=== PATIENT | male | born 1955 | race Caucasian/White ===

== ENCOUNTER 2017-05-22 20:48 | Observation (INO) | payer OTHER ==
[~2017-05-22] VITALS: Ht 177.8 cm; Wt 95.8 kg
[~2017-05-22 20:48] MED LIST: PENI500T; PRAV20TA67
[2017-05-22 20:51] VITALS: BP 146/80; PULSE 77; RESP 16; TEMP 98.3; O2SAT 96
--- NOTE | 2017-05-22 21:10 | PD ---
Physical Exam Date Seen by Provider: May 22, 2017 Time Seen by Provider: 21:07 Narrative 61 yo male here for evaluation of SOB and chest pain. Per patient is chest pressure. Going on for an hour. Nothing makes it better or worst. No trauma. He had something similar 10 years ago but no obvious diagnosis. He changed his lifestyle and improved on it own. Pain is 4/10. Diaphoretic. Vitals are stable in triage. Awaiting bed placement. Data Data Last Documented VS Vital Signs Date Time Temp Pulse Resp B/P Pulse Ox O2 Delivery O2 Flow Rate FiO2 05/22/17 20:51 98.3 77 16 146/80 96 Room Air [facility] Medical Record Reviewed: Yes Supervised Visit with CHELSEY: No Miguel Keller May 22, 2017 21:10
[2017-05-22 21:25] VITALS: BP 137/79; PULSE 76; RESP 18; O2SAT 98
[2017-05-22] MEDS ORDERED: SIMVPOW (21:32)
[2017-05-22] MEDS ORDERED: AMLO10TA2 PO (21:32)
--- NOTE | 2017-05-22 21:39 | PD ---
HPI Chief Complaint: Chest Pain Time Seen by Provider: 21:33 Travel History International Travel<30 days: No Contact w/Intl Traveler<30days: No Traveled to known affect area: No History of Present Illness HPI 61-year-old male presents to the emergency department by private transportation the care of his spouse for evaluation of 20 minutes of chest pressure shortness of breath sweats and generalized weakness. Patient denies any sudden onset thunderclap headache. Patient has no headache at this time. Patient does have history of sinusitis and has noticed over the past few days feeling some mild pressure. Patient denies any visual disturbance. No focal no double vision or blurred vision no loss of vision. Patient had no change in his speech or facial droop. Patient states chest pressure is unusual for him does have history of hypertension and dyslipidemia and last stress test was approximately 8 years ago. Patient does smoke cigars. Patient is not diabetic. Patient has family history premature onset heart disease and diabetes. Patient states that he has been drinking alcohol this evening. Symptoms occurred approximately 7 PM with present while he was talking on the phone. Patient reportedly asked his to assist into the bedroom to help translate down where he rested and symptoms resolved spontaneously. Patient hasn't had no upper extremity lower extremity numbness tingling or weakness or ataxia of gait. [facility] Past Medical History Narrative Medical Hypertension dyslipidemia tobaccoism: Family history CAD diabetes; nursing notes reviewed High Cholesterol: Yes Diminished Hearing: No Hypertension: Yes Tetanus Vaccination: < 5 Years Influenza Vaccination: No Past Surgical History Surgical History: No Previous Surgery Social History Alcohol Use: Yes (FEW DRINKS PER DAY) Tobacco Use: Yes (OCCASIONAL CIGAR) Substance Use: No Allergies-Medications (Allergen,Severity, Reaction): Coded Allergies: No Known Allergies (Verified Allergy, Mild, 07/29/07) Reported Meds & Prescriptions Reported Meds & Active Scripts Active Reported Amlodipine (Amlodipine Besylate) 10 Mg Tab 10 Mg PO DAILY Simvastatin (Simvastain (Bulk)) 1 Pow Pow 20 Mg DAILY Review of Systems Except as stated in HPI: all other systems reviewed are Neg General / Constitutional: No: Fever, Chills Eyes: No: Diploplia, Blurred Vision, Photophobia, Visual changes HENT: Positive: Headaches, No: Neck Stiffness (mild), Neck Pain Cardiovascular: Positive: Chest Pain or Discomfort (5/10 resolved at this time) , Diaphoresis Respiratory: Positive: Shortness of Breath (resolved) Gastrointestinal: No: Nausea, Vomiting, Diarrhea, Abdominal Pain Genitourinary: No: Urgency, Frequency Musculoskeletal: No: Myalgias, Arthralgias, Edema, Pain Skin: No Rash Neurologic: Positive: Weakness, Headache, No: Dizziness, Syncope, Focal Abnormalities, Coordination Problem, Ataxia, Change in Mentation (mild), Slurred Speech, Paresthesia, Seizures Psychiatric: No: Anxiety Endocrine: No: Heat Intolerance Hematologic/Lymphatic: No: Easy Bruising Physical Exam Narrative GENERAL: Well-developed well-nourished female in no acute distress no respiratory distress GCS 15 SKIN: Warm and dry. HEAD: Atraumatic. Normocephalic. EYES: Pupils equal and round. No scleral icterus. No injection or drainage. ENT: No nasal bleeding or discharge. Mucous membranes pink and moist. NECK: Trachea midline. No JVD. CARDIOVASCULAR: Regular rate and rhythm. RESPIRATORY: No accessory muscle use. Clear to auscultation. Breath sounds equal bilaterally. GASTROINTESTINAL: Abdomen soft, non-tender, nondistended. Hepatic and splenic margins not palpable. MUSCULOSKELETAL: Extremities without clubbing, cyanosis, or edema. No obvious deformities. Bilateral radial and dorsalis pedis pulses 2+ to palpation. NEUROLOGICAL: Awake and alert. No obvious cranial nerve deficits. No facial droop, no visual field deficit. Motor grossly within normal limits. Five out of 5 muscle strength in the arms and legs. No limb ataxia. No pronator drift. DTRs 2+ and symmetric. Sensory exam intact. Normal speech. PSYCHIATRIC: Appropriate mood and affect; insight and judgment normal. Data Data Last Documented VS Vital Signs Date Time Temp Pulse Resp B/P Pulse Ox O2 Delivery O2 Flow Rate FiO2 05/22/17 22:23 84 18 130/77 96 Room Air 05/22/17 20:51 98.3 Orders Electrocardiogram (05/22/17 21:03) Electrocardiogram (05/22/17 21:33) Basic Metabolic Panel (Bmp) (05/22/17 21:33) Ckmb (Isoenzyme) Profile (05/22/17 21:33) Complete Blood Count With Diff (05/22/17 21:33) Magnesium (Mg) (05/22/17 21:33) Prothrombin Time / Inr (Pt) (05/22/17 21:33) Act Partial Throm Time (Ptt) (05/22/17 21:33) Troponin I (05/22/17 21:33) Chest, Single Ap (05/22/17 21:33) Ecg Monitoring (05/22/17 21:33) Bilateral Bp Monitoring (05/22/17 21:33) Iv Access Insert/Monitor (05/22/17 21:33) Oximetry (05/22/17 21:33) Oxygen Administration (05/22/17 21:33) Aspirin Chew (Aspirin Chew) (05/22/17 21:45) Sodium Chloride 0.9% Flush (Ns Flush) (05/22/17 21:45) Ct Brain W/O Iv Contrast(Rout) (05/22/17 ) Alcohol (Ethanol) (05/22/17 21:33) Admit Order (Ed Use Only) (05/22/17 ) ^ Saline Lock (05/22/17 22:46) Resp Oxygen Huan C Titrat 1-4 L (05/22/17 ) Notify Dr: Other (05/22/17 22:46) Sodium Chloride 0.9% Flush (Ns Flush) (05/23/17 09:00) Sodium Chloride 0.9% Flush (Ns Flush) (05/22/17 23:00) Activity Bed Rest With Brp (05/22/17 22:46) Vital Signs (Adult) Q4H (05/22/17 22:46) Cardiac Rhythm .As Directed (05/22/17 22:46) Notify Dr: Other .PRN (05/22/17 22:46) Notify Parameters (05/22/17 22:46) Resp Oxygen Nasal Cannula (05/22/17 ) Ckmb (Isoenzyme) Profile (05/23/17 00:40) Ckmb (Isoenzyme) Profile (05/23/17 03:40) Troponin I (05/23/17 00:40) Troponin I (05/23/17 03:40) Electrocardiogram (05/23/17 00:40) Electrocardiogram (05/23/17 03:40) ^ Obtain (05/22/17 22:46) Sodium Chloride 0.9% Flush (Ns Flush) (05/22/17 23:00) Sodium Chloride 0.9% Flush (Ns Flush) (05/23/17 09:00) Acetaminophen (Tylenol) (05/22/17 23:00) Acetamin-Hydrocod 325-7.5 Mg (Chamberino 7.5 (05/22/17 23:00) Morphine Inj (Morphine Inj) (05/22/17 23:00) Ondansetron Inj (Zofran Inj) (05/22/17 23:00) Pantoprazole (Protonix) (05/23/17 09:00) Nitroglycerin Sl (Nitrostat Sl) (05/22/17 23:00) Aspirin (Aspirin) (05/23/17 09:00) Alprazolam (Xanax) (05/22/17 23:00) Newspaper Vendor / Telemetry NEIL.Q8H (05/22/17 22:46) D-Dimer (05/22/17 22:50) Labs Laboratory Tests Test 05/22/17 21:40 White Blood Count 7.1 TH/MM3 Red Blood Count 5.04 MIL/MM3 Hemoglobin 15.6 GM/DL Hematocrit 45.2 % Mean Corpuscular Volume 89.7 FL Mean Corpuscular Hemoglobin 31.0 PG Mean Corpuscular Hemoglobin 34.6 % Concent Red Cell Distribution Width 13.4 % Platelet Count 223 TH/MM3 Mean Platelet Volume 7.9 FL Neutrophils (%) (Auto) 58.7 % Lymphocytes (%) (Auto) 30.8 % Monocytes (%) (Auto) 6.5 % Eosinophils (%) (Auto) 3.2 % Basophils (%) (Auto) 0.8 % Neutrophils # (Auto) 4.1 TH/MM3 Lymphocytes # (Auto) 2.2 TH/MM3 Monocytes # (Auto) 0.5 TH/MM3 Eosinophils # (Auto) 0.2 TH/MM3 Basophils # (Auto) 0.1 TH/MM3 CBC Comment DIFF FINAL Differential Comment Prothrombin Time 10.1 SEC Prothromb Time International 0.9 RATIO Ratio Activated Partial 24.0 SEC Thromboplast Time Sodium Level 139 MEQ/L Potassium Level 3.7 MEQ/L Chloride Level 107 MEQ/L Carbon Dioxide Level 23.1 MEQ/L Anion Gap 9 MEQ/L Blood Urea Nitrogen 11 MG/DL Creatinine 0.83 MG/DL Estimat Glomerular Filtration 94 ML/MIN Rate Random Glucose 104 MG/DL Calcium Level 8.5 MG/DL Magnesium Level 2.4 MG/DL Total Creatine Kinase 47 U/L Troponin I LESS THAN 0.02 NG/ML Ethyl Alcohol Level 176 MG/DL D-Dimer Quantitative (PE/DVT) 0.42 MG/L [facility] Medical Decision Making Medical Screen Exam Complete: Yes Emergency Medical Condition: Yes Medical Record Reviewed: Yes Interpretation(s) EKG normal sinus rhythm no ST elevation or injury pattern or ectopy noted Troponin I less than 0.02, not elevated; CK total 47, not elevated CBC is automated differential values in normal range Basic metabolic panel values in normal range Coagulation studies are normal range Serum alcohol 176 elevated d-dimer: 0.42, not elevated Last Impressions Head CT 05/22/17 0000 Signed Impressions: Service Date/Time: Monday, May 22, 2017 21:41 - CONCLUSION: 1. No acute intracranial abnormalities. Mark Veloz MD Vital Signs Date Time Temp Pulse Resp B/P Pulse Ox O2 Delivery O2 Flow Rate FiO2 05/22/17 21:25 76 18 137/79 98 Room Air 05/22/17 20:51 98.3 77 16 146/80 96 Room Air Chest x-ray: No acute process per reading radiologist Dr. Veloz CBC & BMP Diagram 05/22/17 21:40 Differential Diagnosis Chest pain, ACS, CT, arrhythmia, TIA; also to consider PE Narrative Course Well-developed well-nourished male [id number] with hypertension dyslipidemia and tobaccoism family history of cardiac disease presented with episode of 20 minutes of retrosternal chest pressure that resolved spontaneously but was associated with diaphoresis and mild shortness of breath. Patient administered aspirin 162 mg by mouth as well as EKG ordered along with CT brain noncontrast and serum alcohol level; EKG is sinus rhythm no acute ST elevation or injury pattern or ectopy noted EKG normal sinus rhythm no acute ST elevation injury pattern or ectopy Patient administered aspirin times one dose CT brain noncontrast reveals no acute abnormality chest x-ray is no acute abnormality At 10:42 PM patient is clinically stable and asymptomatic; CT brain chest x-ray EKG lab values all within normal range with no acute abnormalities however serum alcohol is noted to be elevated 176; in view of patient's risk factor profile male, age 61, history of hypertension, history of dyslipidemia, history of tobaccoism, and family history premature onset heart disease will admit patient to chest pain center per protocol. Physician Communication Physician Communication Chest pain center per protocol observation Diagnosis Primary Impression: Chest pain Additional Impression: Alcohol ingestion Admitting Information Admitting Physician Requests: Observation Margarette Vazquez MD May 22, 2017 21:39
[2017-05-22] MEDS ORDERED: ASPIRIN 81 MG CHEW TAB PO ONE (21:45)
[2017-05-22] MEDS ORDERED: SODIUM CHLORIDE 0.9% FLUSH 10 ML FLUSH IVF PRN ×2 (21:45→23:00)
[2017-05-22 22:00] LABS: AUTOMATED NEUTROPHIL # 4.1 TH/MM3 (1.8-7.7); BASOPHIL # 0.1 TH/MM3 (0-0.2); BASOPHIL % 0.8 % (0.0-2.0); EOSINOPHIL # 0.2 TH/MM3 (0-0.4); EOSINOPHIL % 3.2 % (0.0-4.0); HEMATOCRIT 45.2 % (39.0-51.0); HEMO FLAGS DIFF FINAL; LYMPH % 30.8 % (9.0-44.0); LYMPHOCYTE # 2.2 TH/MM3 (1.0-4.8); MEAN CELL VOLUME 89.7 FL (80.0-100.0); MEAN CORPUSCULAR HGB CONC 34.6 % (32.0-36.0); MONO % 6.5 % (0.0-8.0); NEUT % 58.7 % (16.0-70.0); PLATELET COUNT 223 TH/MM3 (150-450); RED BLOOD COUNT 5.04 MIL/MM3 (4.50-5.90); RED CELL DISTRIBUTION WIDTH 13.4 % (11.6-17.2); WHITE BLOOD COUNT 7.1 TH/MM3 (4.0-11.0)
--- NOTE | 2017-05-22 22:09 | RADRPT ---
EXAM DATE/TIME: 05/22/2017 21:41 [facility] COMPARISON: No previous studies available for comparison. INDICATIONS : Dizziness. RADIATION DOSE: 56.35 CTDIvol (mGy) MEDICAL HISTORY : Hypertension. SURGICAL HISTORY : None. ENCOUNTER: Initial ACUITY: 1 day PAIN SCALE: 0/10 LOCATION: cranial TECHNIQUE: Multiple contiguous axial images were obtained of the head. Using automated exposure control and adj ustment of the mA and/or kV according to patient size, radiation dose was kept as low as reasonably a chievable to obtain optimal diagnostic quality images. DICOM format image data is available electro nically for review and comparison. FINDINGS: CEREBRUM: The ventricles are normal for age. No evidence of midline shift, mass lesion, hemorrhage or acute in farction. No extra-axial fluid collections are seen. POSTERIOR FOSSA: The cerebellum and brainstem are intact. The 4th ventricle is midline. The cerebellopontine angle i s unremarkable. EXTRACRANIAL: The visualized portion of the orbits is intact. SKULL: The calvaria is intact. No evidence of skull fracture. CONCLUSION: 1. No acute intracranial abnormalities. Mark Veloz MD on May 22, 2017 at 22:06 Board Certified Radiologist. This report was verified electronically.
--- NOTE | 2017-05-22 22:14 | RADRPT ---
EXAM DATE/TIME: 05/22/2017 21:49 [facility] COMPARISON: No previous studies available for comparison. INDICATIONS : Chest pain and pressure. MEDICAL HISTORY : Hypertension. High cholesterol. SURGICAL HISTORY : None. ENCOUNTER: Initial ACUITY: 1 day PAIN SCORE: 5/10 LOCATION: Bilateral chest FINDINGS: A single view of the chest demonstrates the lungs to be symmetrically aerated without evidence of mas s, infiltrate or effusion. The cardiomediastinal contours are unremarkable. Osseous structures are intact. CONCLUSION: No acute disease. Mark Veloz MD on May 22, 2017 at 22:12 Board Certified Radiologist. This report was verified electronically.
[2017-05-22 22:18] LABS: ANION GAP 9 MEQ/L (5-15); BICARBONATE 23.1 MEQ/L (21.0-32.0); BLOOD UREA NITROGEN 11 MG/DL (7-18); CHLORIDE 107 MEQ/L (98-107); GLOMERULAR FILTRATION RATE 94 ML/MIN (>89); MAGNESIUM 2.4 MG/DL (1.5-2.5); POTASSIUM 3.7 MEQ/L (3.5-5.1); SODIUM (NA) 139 MEQ/L (136-145)
[2017-05-22 22:23] VITALS: BP 130/77; PULSE 83; PULSE 84; RESP 18; O2SAT 96
[2017-05-22 22:26] LABS: CREATINE KINASE 47 U/L (39-308)
[2017-05-22 22:31] LABS: INTERNATIONAL NORMALIZED RATIO 0.9 RATIO; PROTHROMBIN TIME - PATIENT 10.1 SEC (9.8-11.6)
[2017-05-22] MEDS ORDERED: NITROGLYCERIN 0.4 MG SL 25 TABS/BTL SL PRN (23:00)
[2017-05-22] MEDS ORDERED: ACETAMINOPHEN 500 MG CPLT PO PRN (23:00)
[2017-05-22] MEDS ORDERED: SODIUM CHLORIDE 0.9% FLUSH 10 ML FLUSH IV FLUSH PRN (23:00)
[2017-05-22] MEDS ORDERED: MORPHINE SULFATE 4 MG/ML INJ IV PRN (23:00)
[2017-05-22] MEDS ORDERED: ACETAMINOPHEN/HYDROcodone 325 MG/7.5 MG TAB PO PRN (23:00)
[2017-05-22] MEDS ORDERED: ONDANSETRON HCL 4 MG/2 ML VIAL IV PRN (23:00)
[2017-05-22] MEDS ORDERED: ALPRAZolam 0.25 MG TAB PO PRN (23:00)
[2017-05-22 23:40] VITALS: O2SAT 92
[2017-05-23 00:15] VITALS: BP 140/78; PULSE 73; RESP 20; TEMP 98.3; O2SAT 95
[2017-05-23 00:49] VITALS: PULSE 78
[2017-05-23 01:48] LABS: CREATINE KINASE 41 U/L (39-308)
[2017-05-23 04:00] VITALS: PULSE 72
[2017-05-23 04:57] VITALS: BP 147/74; PULSE 71; RESP 18; TEMP 97.8; O2SAT 94
[2017-05-23 05:11] LABS: CREATINE KINASE 42 U/L (39-308)
[2017-05-23 08:31] VITALS: PULSE 84
[2017-05-23 08:56] VITALS: BP 148/86; PULSE 78; RESP 16; TEMP 98.5; O2SAT 93
[2017-05-23] MEDS ORDERED: SODIUM CHLORIDE 0.9% FLUSH 10 ML FLUSH IV FLUSH SCH ×2 (09:00)
[2017-05-23] MEDS ORDERED: ASPIRIN 325 MG TAB PO SCH (09:00)
[2017-05-23] MEDS ORDERED: PANTOPRAZOLE SOD 40 MG DELAYED RELEASE TAB PO SCH (09:00)
--- NOTE | 2017-05-23 11:36 | HHI.HP ---
HPI Primary Care Physician Carlos Alfred DO Chief Complaint Chest pain History of Present Illness 61-year-old male with history of hypertension hyperlipidemia presents to emergency room for further evaluation of chest pain. Onset last evening at 7: 30 PM. Location left anterior chest. Characterized as pressure. Associated symptoms included dizziness, shortness of breath, and diaphoresis area and denied nausea. No radiation of pain. No known precipitating or relieving factors. Duration lasted approximately an hour and a half. Endorses many current situational stressors. Endorses similar pain in the past although not as severe. Notified his primary care provider of above and was directed to come in the ER. Review of Systems General: No fatigue,weakness, fever, chills, recent illness, or change in appetite. Has been a general state of health HEENT: No ROBINS, no vision changes, no nasal congestion or drainage, no dysphasia CV: As stated above. Denies any current chest pain or pressure. RESP: No SOB, cough, or sputum production GI: No nausea, vomiting, bowel changes, diarrhea, constipation, pain, distention , melena, or blood in the stool. : No dysuria EXT: No lower leg edema, no paraesthesias MS: No discomfort or change in ROM NEURO: No c difficulty with balance, LOC, motor/sensory deficits PSYCH: No anxiety, depression. Current situational stress. SKIN: No rashes, no concerning lesions Past Family Social History Allergies: Coded Allergies: No Known Allergies (Verified Allergy, Mild, 07/29/07) Past Medical History Hypertension, hyperlipidemia Past Surgical History None Reported Medications Reported Meds & Active Scripts Active Reported Amlodipine (Amlodipine Besylate) 10 Mg Tab 10 Mg PO DAILY Simvastatin (Simvastain (Bulk)) 1 Pow Pow 20 Mg DAILY Active Ordered Medications Current Medications Medications (Trade) Dose Ordered Sig/Sergei Route Start Time Stop Time Status Last Admin (NS Flush) 2 ml BID IV FLUSH 05/23/17 09:00 05/23/17 10:18 (NS Flush) 2 ml UNSCH PRN IV FLUSH 05/22/17 23:00 (Tylenol) 500 mg Q4H PRN PO 05/22/17 23:00 (Tappan 7.5-325 Mg) 1 tab Q4H PRN PO 05/22/17 23:00 (Morphine Inj) 2 mg Q4H PRN IV 05/22/17 23:00 (Zofran Inj) 4 mg Q6H PRN IV 05/22/17 23:00 (Protonix) 40 mg DAILY PO 05/23/17 09:00 05/23/17 10:18 (Nitrostat Sl) 0.4 mg Q5M PRN SL 05/22/17 23:00 (Aspirin) 325 mg DAILY PO 05/23/17 09:00 05/23/17 10:18 (Xanax) 0.25 mg Q8H PRN PO 05/22/17 23:00 Social History Known hypertension and hyperlipidemia. No known personal coronary artery disease or diabetes. Endorses occasional cigar. Nightly glass a wine. Denies any illegal drug use. Endorses an active lifestyle. Past cardiac testing No recent stress testing. Nuclear stress test completed at age 53 due to similar current symptoms. Physical Exam Vital Signs Vital Signs Date Time Temp Pulse Resp B/P Pulse Ox O2 Delivery O2 Flow Rate FiO2 05/23/17 08:56 98.5 78 16 148/86 93 05/23/17 08:31 84 05/23/17 04:57 97.8 71 18 147/74 94 05/23/17 04:00 72 05/23/17 00:49 78 05/23/17 00:15 98.3 73 20 140/78 95 05/22/17 23:40 92 05/22/17 22:23 84 18 130/77 96 Room Air 05/22/17 22:23 83 05/22/17 21:25 76 18 137/79 98 Room Air 05/22/17 20:51 98.3 77 16 146/80 96 Room Air Physical Exam GENERAL: Alert WN, WD, NAD, pleasant, male HEAD: NC, AT NECK: Supple, no masses, trachea midline CV: RRR, without murmur, rub, gallop, no JVD, S1-S2 no S3-S4. No carotid bruits. RESP: Clear lungs throughout bilateral, no crackles, wheeze, rhonchi, symmetrical chest rise, nonlabored, able to speak in full sentences ABD: Soft, NT, ND, no masses, positive bowel tones EXT: Pulses +24, no dependent edema MS: Normal tone 4 extremities, nontender, no obvious deformities, full range of motion NEURO: CN II through CN XII grossly intact, motor strength 5/5, gait WNL PSYCH: A+O 3, pleasant affect, appropriate speech, appropriate mood and affect , insight and judgment SKIN: Normal turgor, normal texture, no lesions, no rashes, brisk cap refill, even hair distribution Laboratory Laboratory Tests Test 05/22/17 05/23/17 05/23/17 21:40 00:40 04:00 White Blood Count 7.1 Red Blood Count 5.04 Hemoglobin 15.6 Hematocrit 45.2 Mean Corpuscular Volume 89.7 Mean Corpuscular Hemoglobin 31.0 Mean Corpuscular Hemoglobin 34.6 Concent Red Cell Distribution Width 13.4 Platelet Count 223 Mean Platelet Volume 7.9 Neutrophils (%) (Auto) 58.7 Lymphocytes (%) (Auto) 30.8 Monocytes (%) (Auto) 6.5 Eosinophils (%) (Auto) 3.2 Basophils (%) (Auto) 0.8 Neutrophils # (Auto) 4.1 Lymphocytes # (Auto) 2.2 Monocytes # (Auto) 0.5 Eosinophils # (Auto) 0.2 Basophils # (Auto) 0.1 CBC Comment DIFF FINAL Differential Comment Prothrombin Time 10.1 Prothromb Time International 0.9 Ratio Activated Partial 24.0 Thromboplast Time Sodium Level 139 Potassium Level 3.7 Chloride Level 107 Carbon Dioxide Level 23.1 Anion Gap 9 Blood Urea Nitrogen 11 Creatinine 0.83 Estimat Glomerular Filtration 94 Rate Random Glucose 104 Calcium Level 8.5 Magnesium Level 2.4 Total Creatine Kinase 47 41 42 Troponin I LESS THAN 0.02 LESS THAN 0.02 LESS THAN 0.02 Ethyl Alcohol Level 176 D-Dimer Quantitative (PE/DVT) 0.42 Result Diagram: 05/22/17213905/22/172139 Imaging Last Impressions Chest X-Ray 05/22/172132 Signed Impressions: Service Date/Time: Monday, May 22, 2017 21:49 - CONCLUSION: No acute disease. Mark Veloz MD Head CT 05/22/17 0000 Signed Impressions: Service Date/Time: Monday, May 22, 2017 21:41 - CONCLUSION: 1. No acute intracranial abnormalities. Mark Veloz MD Course EKG Normal sinus rhythm, normal axis, no ST or T-segment changes Assessment and Plan Assessment and Plan Chest painadmitted to chest pain center. Ruled out with 3 sets of EKGs, cardiac enzymes, monitor overnight. Seen and evaluated by Dr. Jose Elias Young. Completed exercise stress test which did not show signs of ischemia. Discharge later afternoon. Patient and is agreeable to plan of care. Follow-up with PCP. Hypertensioncontinue amlodipine Hyperlipidemiacontinue simvastatin Ronit Lau May 23, 2017 11:36
--- NOTE | 2017-05-23 12:37 | HHI.DCPOC ---
Discharge Care Plan Diagnosis: (1) Atypical chest pain (2) Hypertension (3) Situational stress Goals to Promote Your Health * To prevent worsening of your condition and complications * To maintain your health at the optimal level Directions to Meet Your Goals Take your medications as prescribed Follow your dietary instruction Follow activity as directed Keep your appointments as scheduled Take your immunizations and boosters as scheduled If your symptoms worsen call your PCP, if no PCP go to Urgent Care Center or Emergency Room Smoking is Dangerous to Your Health. Avoid second hand smoke Call the 24-hour hour crisis hotline for domestic abuse at Ronit Lau May 23, 2017 12:37
--- NOTE | 2017-05-23 17:05 | TR ---
Date Performed: 05/23/2017 Time Performed: 12:04:24 DOCTOR: Jose Elias Young DRUG LIST: CLINICAL HISTORY: REASON FOR TEST: Chest pain REASON FOR ENDING: OBSERVATION: CONCLUSION: Brown protocol completed. Stopped sec to exceeding target heart rate and leg fatigue . Maximum UY=276 Target HR Achieved=92.0% Maximum JK=032/82 Total Exercise Time=7:01. No reprod chest discomfort. Occassional PVC. No st t segment changes to sugg ischemia. Normal bp response. Recovery quick and unremarkable. COMMENTS: Conclusion: Normal treadmill exercise. No evidence of ischemia.
--- NOTE | 2017-05-23 17:06 | EKG ---
Date Performed: 05/23/2017 Time Performed: 04:24:26 PTAGE: 61 years EKG: Sinus rhythm NORMAL ECG PREVIOUS TRACING : 05/23/2017 01.04 Since previous tracing, no significant change noted DOCTOR: Jose Elias Young Interpretating Date/Time 05/23/2017 17:05:17
--- NOTE | 2017-05-23 17:09 | EKG ---
Date Performed: 05/23/2017 Time Performed: 01:04:19 PTAGE: 61 years EKG: Sinus rhythm Normal ECG PREVIOUS TRACING : 05/22/2017 21.03 Since previous tracing, no significant change noted DOCTOR: Jose Elias Young Interpretating Date/Time 05/23/2017 17:09:03
--- NOTE | 2017-05-23 17:14 | EKG ---
Date Performed: 05/22/2017 Time Performed: 21:03:27 PTAGE: 61 years EKG: Sinus rhythm NORMAL ECG PREVIOUS TRACING : 07/29/2007 18.11 Since previous tracing, no significant change noted DOCTOR: Jose Elias Young Interpretating Date/Time 05/23/2017 17:12:54
== END 2017-05-23 13:42 | disposition home or self-care (01) ==
LOC: NEPC 20:48 → NEDA 22:50 → NEPGCP 05-23 00:22
PROVIDERS: ADMIT Internal Medicine Interventional Cardiology; ATTEND Internal Medicine Interventional Cardiology
DX: R07.89 Other chest pain (principal); R06.02 Shortness of breath; R42 Dizziness and giddiness; R61 Generalized hyperhidrosis; I10 Essential (primary) hypertension; E78.5 Hyperlipidemia, unspecified; F17.290 Nicotine dependence, other tobacco product, uncomplicated; Z82.49 Family history of ischemic heart disease and other diseases of the circulatory system; Z79.899 Other long term (current) drug therapy
CPT/HCPCS: 70450; 71010; 80048; 80307; 82550; 83735; 84484; 85025; 85379; 85610; 85730; 93005; 93017; 99285; G0378